=== PATIENT | male | born 1950 | race Caucasian/White ===

== ENCOUNTER 2018-02-09 10:13 | Inpatient (IN) ==
--- NOTE | 2018-02-08 21:48 | Discharge Summary ---
<Luz Feliz E - Last Filed: 02/08/18 21:45> Date of Encounter: 02/08/18 - Discharge Diagnosis (1) Status post total replacement of right shoulder Priority: Primary Status: Acute (2) Rotator cuff tear arthropathy of right shoulder Priority: Primary Status: Chronic (3) HTN (hypertension) Priority: Secondary Status: Chronic Qualifiers: Hypertension type: unspecified Qualified Code(s): I10 - Essential (primary ) hypertension (4) HLD (hyperlipidemia) Priority: Secondary Status: Chronic Qualifiers: Hyperlipidemia type: unspecified Qualified Code(s): E78.5 - Hyperlipidemia , unspecified (5) GERD (gastroesophageal reflux disease) Priority: Secondary Status: Chronic Qualifiers: Esophagitis presence: esophagitis presence not specified Qualified Code(s) : K21.9 - Gastro-esophageal reflux disease without esophagitis (6) BPH (benign prostatic hyperplasia) Priority: Secondary Status: Chronic Qualifiers: Lower urinary tract symptom presence: unspecified whether lower urinary tract symptoms present Qualified Code(s): N40.0 - Benign prostatic hyperplasia without lower urinary tract symptoms (7) Obesity Priority: Secondary Status: Chronic Qualifiers: Obesity type: unspecified obesity type Obesity classification: unspecified obesity classification Serious obesity comorbidity presence: unspecified whether serious comorbidity present Qualified Code(s): E66.9 - Obesity, unspecified - Hospital Course Hospital course: Mr. Pradhan is a 67 year old male - Time Spent with Patient Total time spent providing and/or coordinating discharge services: - Discharge Medications Home Medications: Aspirin Enteric Coated [Aspirin EC] 325 mg PO BID 10 Days #20 tablet. [Rx] OxyCODONE Immed Rel [Roxicodone 5 MG] 5 mg PO Q6HR PRN 7 Days #28 tablet [Rx] Aspirin [Lo-Dose Aspirin EC] 81 mg PO DAILY 02/09/18 [History] Finasteride [Proscar] 5 mg PO DAILY 02/09/18 [History] Loratadine [Allergy Relief] 10 mg PO DAILY 02/09/18 [History] Meloxicam [Mobic] 15 mg PO DAILY 02/09/18 [History] Metoprolol [Lopressor] 100 mg PO BID 02/09/18 [History] Multivitamin [One Daily Essential] 1 tab PO DAILY 02/09/18 [History] [place]-3/Dha/Epa/Fish Oil [Fish Oil 1,000 mg Softgel] 1 cap PO DAILY 02/09/18 [ History] Omeprazole [PriLOSEC] 20 mg PO DAILY 02/09/18 [History] Prazosin HCl [Minipress] 2 mg PO HS 02/09/18 [History] Simvastatin [Zocor] 40 mg PO HS 02/09/18 [History] Tamsulosin [Flomax] 0.4 mg PO DAILY 02/09/18 [History] Venlafaxine HCl 100 mg PO DAILY 02/09/18 [History] hydroCHLOROthiazide [Hydrochlorothiazide] 12.5 mg PO DAILY 02/09/18 [History] Allergies/Adverse Reactions: 3 Allergy/AdvReac Type Severity Reaction Status Date / Time No Known Allergies Allergy Verified 02/09/18 10:52 [facility] - Patient Status Disposition: Home, Self-Care Condition: Good - Discharge Instructions Follow Up With: [facility] [Primary Care Provider[facility] - <Zana Hilton - Last Filed: 02/10/18 06:46> Orders not resulted at time of discharge: Pending orders 02/09/18 01:00 XR shoulder complete RT [XR] Routine Hemoglobin and Hematocrit [HEME] Routine Date of Encounter: 02/10/18 Time of Encounter: 06:45 - Discharge Diagnosis (1) Obesity (BMI 30.0-34.9) Priority: Secondary Status: Chronic (2) Rotator cuff tear arthropathy of right shoulder Priority: Primary Status: Chronic (3) HTN (hypertension) Priority: Secondary Status: Chronic Qualifiers: Hypertension type: unspecified Qualified Code(s): I10 - Essential (primary ) hypertension (4) HLD (hyperlipidemia) Priority: Secondary Status: Chronic Qualifiers: Hyperlipidemia type: unspecified Qualified Code(s): E78.5 - Hyperlipidemia , unspecified (5) GERD (gastroesophageal reflux disease) Priority: Secondary Status: Chronic Qualifiers: Esophagitis presence: esophagitis presence not specified Qualified Code(s) : K21.9 - Gastro-esophageal reflux disease without esophagitis (6) BPH (benign prostatic hyperplasia) Priority: Secondary Status: Chronic Qualifiers: Lower urinary tract symptom presence: unspecified whether lower urinary tract symptoms present Qualified Code(s): N40.0 - Benign prostatic hyperplasia without lower urinary tract symptoms (7) Status post total replacement of right shoulder Priority: Primary Status: Acute - Hospital Course Hospital course: Mr. Pradhan is a 68 year old male As post right total shoulder replacement The patient had an uneventful postoperative course. They received antibiotics and physical therapy and were discharged in stable condition. There will follow -up in the office in 2 weeks. - Time Spent with Patient Total time spent providing and/or coordinating discharge services: [facility] care [facility]: [facility] - Patient Status Functional capacity at discharge: independent ambulation Overall status at discharge: patient is progressing back to baseline
--- NOTE | 2018-02-08 21:49 | Physician Discharge Referral ---
Home Health/Hosp Referral Info Transfer to: Home Health Attending Provider: Dr Hilton - Diagnosis (1) Status post total replacement of right shoulder Priority: Primary Status: Acute (2) Rotator cuff tear arthropathy of right shoulder Priority: Primary Status: Chronic (3) HTN (hypertension) Priority: Secondary Status: Chronic (4) HLD (hyperlipidemia) Priority: Secondary Status: Chronic (5) GERD (gastroesophageal reflux disease) Priority: Secondary Status: Chronic (6) BPH (benign prostatic hyperplasia) Priority: Secondary Status: Chronic (7) Obesity Priority: Secondary Status: Chronic - Respiratory Orders Smoking Cessation: Smoking cessation has been advised. For more information, call the [place] Tobacco Quit Line at 5-159-FQLB-NOW. - Dressing/Wound Care Site: right shoulder Type of Dressing/Treatments w/Frequency: Opsite placed. Keep dressing intact until first follow up appointment. If greater than 50% saturated, notify office, remove dressing and place appropriate dressing back in place. Leave Zipline intact. Opsite dressing is water resistant, not water-proof. OK to shower, but do not get dressing wet. - Diet/Nutrition Diet/Nutrition Orders: Regular - Activity Activity Orders: Up ad jose martin, Ambulate, Chair Activity: List: PT/OT. NWB to affected upper extremity. Follow Shoulder Precautions x 6 weeks. Stay in brace during activity and at night. Remove brace during exercises. ICE and elevate extremity frequently throughout the day. - Services Needed Following services are medically necessary services: Nursing, Home Health Aide, Physical Therapy, Occupational Therapy - Transfer Medications Prescriptions: OxyCODONE Immed Rel [Roxicodone 5 MG] 5 mg PO Q6HR PRN 7 Days #28 tablet PRN Reason: Severe Pain Aspirin Enteric Coated [Aspirin EC] 325 mg PO BID 10 Days #20 tablet. [place] Medications: Aspirin Enteric Coated [Aspirin EC] 325 mg PO BID 10 Days #20 tablet. [Rx] OxyCODONE Immed Rel [Roxicodone 5 MG] 5 mg PO Q6HR PRN 7 Days #28 tablet [Rx] Allergies/Adverse Reactions: 3 Allergy/AdvReac Type Severity Reaction Status Date / Time No Known Allergies Allergy Unverified 02/02/18 13:49 Certification: Further, I certify that my clinical findings support that this patient is homebound (i.e. absences from home require considerable and taxing effort and are for medical reasons or islam services or infrequently or short duration when for other reasons) because: Homebound Reason: Post-surgery restriction and or conditions limit ability to leave home Attestation: My signature below is to certify that this patient is under my care and that I, or nurse practitioner, or a physician golf player assistant working with me, has a face-to- face encounter with this patient.
[2018-02-09] MEDS ORDERED: CeFAZolin Syr 2,000MG/20 ML 2,000 MG/20 ML SYRINGE IVPB ONE (10:29)
[2018-02-09] MEDS ORDERED: Ringers Solution, Lactated 1,000 ML IVC SCH ×2 (10:30→14:38)
--- NOTE | 2018-02-09 10:37 | Anesthesia Evaluation PreOp ---
Date of Encounter: 02/09/18 Time of Encounter: 10:35 - Past History Planned Operation: R total shoulder replacement, reverse ball socket Cardiac History: HTN, Hyperlipidemia, Other (s/p cardiac ablation) Pulmonary History: Former smoker [employer] History: Denies Any Significant HX Other Medical History: GERD Anesthesia History: No Prior Anesthetic Complications, Past Anesthesia (rotator cuff, cholecystectomy) Alcohol Use: none Drug use: none Medications and Allergies Aspirin Enteric Coated [Aspirin EC] 325 mg PO BID 10 Days #20 tablet. [Rx] OxyCODONE Immed Rel [Roxicodone 5 MG] 5 mg PO Q6HR PRN 7 Days #28 tablet [Rx] 3 Allergy/AdvReac Type Severity Reaction Status Date / Time No Known Allergies Allergy Unverified 02/02/18 13:49 - Meds/Allergy Pre-op Review Medications Reviewed: Yes Allergies Reviewed: Yes Beta Blockers on Current Med List: Yes If Beta Blockers taken, Date/Time (Last Dose taken): 9am today Anesthesia Results - Labs Laboratory Tests 02/02/18 02/02/18 02/02/18 14:00 14:00 14:00 WBC 6.0 Hgb 15.2 Hct 44.9 Plt Count 163 PT 10.4 INR 1.0 APTT 26.8 Sodium 138 Potassium 3.9 Chloride 105 Carbon Dioxide 25 BUN 16 Creatinine 1.00 - Imaging EKG: report reviewed ( Interpretive Statements SINUS RHYTHM INFERIOR MYOCARDIAL INFARCTION, PROBABLY OLD Electronically Signed On 02-03-2018 9:31:22 EDT by Yonis Gutierrez MD) Anesthesia Exam O2 Sat Height 1.65 m Height 1.65 m Weight 84.368 kg Weight 84.368 kg O2 Sat by Pulse Oximetry 95 Vital Signs Temp Pulse Resp BP Pulse Ox 97.9 F 61 18 137/90 95 02/09/18 10:28 02/09/18 10:28 02/09/18 10:28 02/09/18 10:28 02/09/18 10:28 - HEENT Pupil (Motor): Pupils equal, EOMI Mallampati: II Teeth: Edentulous Denture Type: Upper: Complete Oral Opening: Greater than 3 - [employer] LOC: Oriented [employer] Motor: Normal RUE, Normal LUE, Normal RLE, Normal LLE, Normal Face [employer] Sensory: Normal: RUE, LUE, RLE, LLE, Face - Cardiac Rhythm: Regular - Pulmonary Breath Sounds: bilateral Clear Respiratory Effort: Symmetrical Anesthesia Assess/Plan ASA Score: 2 Modified [place] Scale for Level of Consciousness: Cooperative, oriented, and tranquil Anesthetic Plan: General, Regional (R brachial plexus) Monitoring Plan: Standard Monitors Recovery Plan: PACU
[2018-02-09] MEDS ORDERED: Acetaminophen IV 1,000 MG/100 ML INFUS..BTL IVPB ONE (10:47)
--- NOTE | 2018-02-09 10:58 | History & Physical Report ---
Date of Encounter: 02/09/18 Time of Encounter: 10:58 24 Hour HP Update - Instructions Instructions: If the History and Physical is less than 30 days old and was completed prior to A.M. admission and or procedure and has NOT been updated on calendar day of procedure please complete this update prior to performing procedure. - Update Patient reports changes in Medical Condition: No Changes in examination, assessment, or condition: No Changes in Medication: No Preop tests/diagnostics Reviewed: Yes Surgery Remains Indicated: Yes Consent for Planned Operative Procedure(s) Verified: Yes - Pre-Operative Checklist Preoperative Checklist Indicated: No Prophylactic Antibiotic Ordered: Yes Is VTE Prophylaxis Indicated?: Yes
[2018-02-09] MEDS ORDERED: ROPIVACAINE HCL/PF 0.5% 30 ML VIAL ONE (12:29)
[2018-02-09] MEDS ORDERED: Bupivacaine/Clonidine Syringe 1 EACH SYRINGE ONE (12:29)
--- NOTE | 2018-02-09 12:56 | Anesthesia Procedures ---
Date of Encounter: 02/09/18 Time of Encounter: 12:54 Procedures: Anesthesia - Nerve Block Procedure Date: 02/09/18 Time: 12:54 Allergies/Adv Reactions: NKDA Pre-op Diagnosis: right shoulder rotator cuff arthropathy Surgical Procedure: right total shoulder Checklist: Correct Patient Identifier, Correct procedure, History checked Correct side: Right Blood Thinner: No Monitor Applied: BP, Pulse Oximetry Supplemental Oxygen via Nasal Cannula (L/min): 2 Sedation: Versed (mg): 2 Indication: Post Op Analgesia (per dr. lopez) Pre-op Neuro Deficits: No Block Type: Supraclavicular, Other (superficial cervical plexus) Catheter placed: No Sterile Technique: Yes Ultrasound used: Yes Anatomy identified: Yes Visual spread of Local: Yes Neuro Stimulation: No Blood on Needle Aspiration: No Smooth Injection of Local: Yes Pain with Injection of Local: No Prep: Chlorhexadine Needle: 22 x 50 mm Stimuplex Local: 0.25% Bupivicaine w/Clonidine 20 mcg/cc (7ml for superficial cervical plexus.), Ropivacaine (30 ml 0.5% for supraclav, ) Volume (cc): 30ml supraclav, 7ml SCP Number of Attempts: 1 Complications: None/effective block Vitals: Vital Signs/O2 Sat, Most Current Temp Pulse Resp BP Pulse Ox 97.9 F 57 16 108/71 94 02/09/18 10:28 02/09/18 12:52 02/09/18 12:52 02/09/18 12:52 02/09/18 12:52
[2018-02-09] MEDS ORDERED: *HR* Midazolam HCl 2 MG/2 ML VIAL ONE (13:36)
[2018-02-09] MEDS ORDERED: EPHEDrine 50 MG/ML VIAL ONE (13:36)
[2018-02-09] MEDS ORDERED: Lidocaine -MPF 2% 2 ML VIAL ONE (13:36)
[2018-02-09] MEDS ORDERED: *HR* PHENYLEPHRINE 1,000 MCG/10 ML SYRINGE IVP ONE (13:36)
[2018-02-09] MEDS ORDERED: *HR* Propofol 200 MG/20 ML VIAL IVP ONE ×2 (13:36)
[2018-02-09] MEDS ORDERED: Ondansetron 4 MG/2 ML VIAL ONE (13:36)
[2018-02-09] MEDS ORDERED: Dexamethasone 4 MG/ML VIAL ONE (13:36)
[2018-02-09] MEDS ORDERED: *HR* FentaNYL (PF) 100 MCG/2 ML VIAL ONE (13:36)
[2018-02-09] MEDS ORDERED: Ondansetron 4 MG/2 ML VIAL IVP PRN ×2 (13:38→14:38)
[2018-02-09] MEDS ORDERED: *HR* OxyCODONE Immed Rel 5 MG TABLET PO PRN ×2 (13:38→14:38)
--- NOTE | 2018-02-09 13:50 | Orthopedic Operative Note ---
Date of procedure: 02/09/18 Pre-op diagnosis: Right shoulder cuff tear arthropathy Post-op diagnosis: same Procedure: Procedure: Total Shoulder Replacment Reverse, right Estimated blood loss: 100 cc Hardware: Metal and polyethylene replacement: Arthrex large glenoid baseplate, 2 4.5 screws. 1 6.5 screw, 42+4 glenosphere, 9 humeral stem, poly insert 3 and 9 metal Exam Under anesthesia: Restricted motion all planes right shoulder Procedural Notes: Patient noted to have grade 4 arthritic changes humeral head glenoid socket, rotator cuff tear supraspinatus tendon. Operative procedure: The patient was brought to the operating room and placed on the operating room table. After general anesthesia was administered the operative shoulder was examined. Findings were noted. The patient was placed in the modified beachchair position. All pressure points were padded appropriately. And the head was stabilized in the neutral position. The operative extremity was prepped and draped in the sterile surgical fashion. The patient received IV antibiotics prior to skin incision. A standard deltopectoral approach was made to the operative shoulder. Incision was made to the skin and subcutaneous tissue,hemo stasis was obtained with Bovie cautery. Using careful blunt dissection the cephalic vein was identified and mobilized medially. The deltopectoral interval was developed and the clavipectoral fascia was incised. The subscap was released off the lesser tuberosity and tagged with #2 FiberWire suture subscap was irreparable. The humerus was dislocated patient noted to have irreparable tear supraspinatus tendon, and the humeral cut was made along the anatomic neck. Patient noted to have grade 4 arthritic changes head. Anterior and posterior Bankart retractors were placed to expose the glenoid. She noted to have grade 4 arthritic changes glenoid socket. The glenoid guide was seated and the centering hole was made. It was reamed with the appropriate reamer. The large baseplate was seated and secured with (2) 4.5 screws and one 6.5 screw. The baseplate was irrigated and dried and the 42+4 Glenosphere was seated and secured with the Whitney taper. The Whitney taper was tested and found to be secure the humerus was redislocated and prepared with the diaphyseal reamers, followed by a broaching process up to the appropriate size 9 in the patient's anatomic version. The metaphyseal reamer was then utilized. Trial reduction found the shoulder to be relocatable. Trial components were removed and The appropriate 9 stem was impacted in place in the patient's anatomic version. Trial reduction found the shoulder to be relocatable and stable with the appropriate 9 metal and 3 Ryan[place] Trial component was removed and the implants were seated and secured the shoulder was reduced. The shoulder had excellent motion and excellent stability and no evidence of dislocation. The deep tissue was irrigated with pulse irrigation. The PA close the shoulder. The deltopectoral interval was closed with a running #1 PDS suture, subcutaneous tissue was irrigated and closed with 0 PDS suture, the skin was closed with Dermabond. The patient was placed in a sterile dressing, abduction brace and extubated. The patient was then transferred to the recovery room in stable condition. Anesthesia: BELLE Surgeon: Zana Hilton Was there an assistant men's soccer coach present: No Estimated blood loss (cc): 100 Condition: stable Disposition: PACU
[2018-02-09 14:31] LABS: Hemoglobin 14.2 g/dL (12.9-16.9)
[2018-02-09] MEDS ORDERED: MOM Conc 10 ML UD.LIQ PO PRN (14:38)
[2018-02-09] MEDS ORDERED: *HR* OxyCODONE/APAP 5/325 TABLET PO PRN (14:38)
[2018-02-09] MEDS ORDERED: Temazepam 15 MG CAPSULE PO PRN (14:38)
[2018-02-09] MEDS ORDERED: Naloxone 0.4 MG/ML INJ IVP PRN (14:38)
[2018-02-09] MEDS ORDERED: Sennosides 8.6 MG TABLET PO PRN (14:38)
[2018-02-09] MEDS ORDERED: traMADol 50 MG TABLET PO PRN (14:38)
--- NOTE | 2018-02-09 15:00 | Anesthesia Evaluation Post Op ---
Date of Encounter: 02/09/18 Time of Encounter: 14:59 - Vital Signs Vital Signs: Vital Signs/O2 Sat, Most Current Temp Pulse Resp BP Pulse Ox 96.5 F L 68 18 140/95 95 02/09/18 14:47 02/09/18 14:47 02/09/18 14:47 02/09/18 14:47 02/09/18 14:47 - Lungs Lungs: Clear Ascult./Percussion - Airway Airway: Non-obstructed - Cardiovascular Regular Rate - Mental Status Mental Status: Alert & Oriented, Answers Appropriately - Pain Pain Scale: 0 Pain Scale used: Numeric (1 - 10) - Nausea Vomiting Nausea Vomiting: Present - Hydration Hydration: Ice chips - Discharge PostOp Status: Transfer Patient to floor Attestation: I have assessed this patient and find they meet discharge criteria.
[2018-02-09] MEDS: *HR* Enoxaparin 30 MG/0.3 ML SYRINGE SQ SCH (17:49)
[2018-02-09] MEDS ORDERED: *HR* Enoxaparin 30 MG/0.3 ML SYRINGE SQ SCH (18:00)
[2018-02-09] MEDS: Metoprolol 100 MG TABLET PO SCH (20:50)
[2018-02-09] MEDS: ceFAZolin 2,000 MG in D5% in Water 100 ML IVPB SCH (20:55)
[2018-02-10] MEDS: ceFAZolin 2,000 MG in D5% in Water 100 ML IVPB SCH (05:05)
[2018-02-10] MEDS: *HR* Enoxaparin 30 MG/0.3 ML SYRINGE SQ SCH (05:07)
[2018-02-10 06:19] LABS: Hematocrit 37.1 % (37.5-50.1); Hemoglobin 12.8 g/dL (12.9-16.9)
--- NOTE | 2018-02-10 06:46 | Orthopedics Progress Note ---
Date of Encounter: 02/10/18 Time of Encounter: 06:46 - Assessment and Plan (1) Obesity (BMI 30.0-34.9) Current Visit: Yes Status: Chronic (2) Rotator cuff tear arthropathy of right shoulder Current Visit: No Status: Chronic (3) HTN (hypertension) Current Visit: No Status: Chronic Qualifiers: Hypertension type: unspecified Qualified Code(s): I10 - Essential (primary ) hypertension (4) HLD (hyperlipidemia) Current Visit: No Status: Chronic Qualifiers: Hyperlipidemia type: unspecified Qualified Code(s): E78.5 - Hyperlipidemia , unspecified (5) GERD (gastroesophageal reflux disease) Current Visit: No Status: Chronic Qualifiers: Esophagitis presence: esophagitis presence not specified Qualified Code(s) : K21.9 - Gastro-esophageal reflux disease without esophagitis (6) BPH (benign prostatic hyperplasia) Current Visit: No Status: Chronic Qualifiers: Lower urinary tract symptom presence: unspecified whether lower urinary tract symptoms present Qualified Code(s): N40.0 - Benign prostatic hyperplasia without lower urinary tract symptoms (7) Status post total replacement of right shoulder Current Visit: No Status: Acute Subjective Interval history: Patient was seen this morning doing well without complaints. Afebrile vital signs stable. Operative extremity: Neurovascularly intact Dressing clean dry and intact Calves nontender Assessment and plan: Continue with postoperative care Discharged today Objective Vital signs: Vital Signs Temp Pulse Resp BP Pulse Ox 02/10/18 03:37 98.7 F 86 16 99/67 93 02/09/18 23:42 98.7 F 110 16 113/69 92 02/09/18 19:19 97.6 F 96 17 126/82 92 02/09/18 17:46 97.4 F L 88 16 148/90 96 02/09/18 16:39 97.4 F L 66 16 143/85 94 02/09/18 15:28 97.4 F L 65 14 145/85 95 02/09/18 14:47 96.5 F L 68 18 140/95 95 02/09/18 14:34 97.6 F 73 16 157/86 94 02/09/18 14:24 73 16 142/93 95 02/09/18 14:14 74 16 142/93 96 02/09/18 14:04 97.7 F 57 16 138/92 100 02/09/18 12:52 57 16 108/71 94 02/09/18 12:34 59 16 138/88 95 02/09/18 10:28 97.9 F 61 18 137/90 95 Intake and Output 02/09/18 02/09/18 02/10/18 15:59 23:59 07:59 Intake Total 500 / 500 Output Total 100 / 100 1999 / 1999 200 / 200 Balance -100 / -100 -1999 300 / 300 Intake: IV Fluids 200 / 200 Ancef 2,000 MG In Dextrose 5% 200 / 200 100 ML @ 200 mls/hr IVPB Q8H [facility] Rx#:[id number] Oral 300 / 300 Output: Urine 1999 200 / 200 Estimated Blood Loss 100 / 100 Other: Weight 84.368 kg 90.8 kg Patient Weight 02/10/18 23:59 Weight 90.8 kg - Labs CBC & BMP: 02/10/18 05:47 Labs: Abnormal lab results Hgb 12.8 g/dL (12.9-16.9) L 02/10/18 05:47 Hct 37.1 % (37.5-50.1) L 02/10/18 05:47 - VTE Documentation of Mechanical Device: Venous foot pump, device Consult Discharge Plan - Plan [facility]errals: [facility] [Primary Care Provider] -
[2018-02-10 08:28] VITALS: BP 121/75
[2018-02-10] MEDS: Metoprolol 100 MG TABLET PO SCH (08:41)
[2018-02-10] MEDS ORDERED: Finasteride 5 MG TABLET PO SCH (09:00)
[2018-02-10] MEDS ORDERED: hydroCHLOROthiazide 25 MG TABLET PO SCH (09:00)
[2018-02-10] MEDS ORDERED: Aspirin Enteric Coated 81 MG Tablet PO SCH (09:00)
[2018-02-10] MEDS ORDERED: Loratadine 10 MG TABLET PO SCH (09:00)
[2018-02-10] MEDS ORDERED: Multivit/Ca/Min/Fe/FA 1 TAB TABLET PO SCH (09:00)
== END 2018-02-10 11:17 | disposition home or self-care (01) | DRG 483 ==
LOC: SAMDAY 10:13 → 3NENU 14:37
PROVIDERS: ADMIT Orthopaedic Surgery; ATTEND Orthopaedic Surgery